=== PATIENT | male | born 1945 | race Native Hawaiian/Other Pacific Islander ===

== ENCOUNTER 2017-01-31 15:57 | Outpatient (CLI) | payer OTHER | END 2017-01-31 19:34 | disposition home or self-care (01) | LOC: LAB 15:57 | DX: R19.7 Diarrhea, unspecified (principal) | CPT/HCPCS: 82272; 87015; 87045; 87205; 87206; 87328; 87329; 87338; 87493; 87798; 87899 ==

== ENCOUNTER 2019-10-15 10:45 | Outpatient (CLI) | payer OTHER | END 2019-10-15 19:37 | disposition home or self-care (01) | LOC: RAD 10:45 | DX: E78.00 Pure hypercholesterolemia, unspecified (principal) ==

== ENCOUNTER 2020-01-22 15:25 | Outpatient (CLI) | payer OTHER | END 2020-01-22 19:20 | disposition home or self-care (01) | LOC: RAD 15:25 | DX: M70.61 Trochanteric bursitis, right hip (principal) ==

== ENCOUNTER 2020-03-09 10:31 | Outpatient (CLI) | payer OTHER | END 2020-03-09 20:10 | disposition home or self-care (01) | LOC: LABW 10:31 | DX: R50.9 Fever, unspecified (principal); U07.1 COVID-19 | CPT/HCPCS: 87635; G2023; U0002 ==

== ENCOUNTER → 2021-11-01 | Outpatient (CLI) | payer OTHER | LOC: MAMMO 14:11 | PROVIDERS: ATTEND Internal Medicine | DX: N63.11 Unspecified lump in the right breast, upper outer quadrant (principal) ==

== ENCOUNTER 2022-11-12 12:04 | Emergency (ER) | payer OTHER ==
[~2022-11-12] VITALS: Ht 182.9 cm; Wt 104.3 kg
[2022-11-12 12:10] VITALS: TEMP 98.9
[2022-11-12 13:35] VITALS: BP 116/69
== END 2022-11-12 13:35 | disposition home or self-care (01) ==
LOC: ED 12:04
DX: B34.9 Viral infection, unspecified (principal); Z20.822 Contact with and (suspected) exposure to COVID-19
CPT/HCPCS: 87502; 87635; 99283; U0003

== ENCOUNTER 2022-12-23 04:11 | Emergency (ER) | payer OTHER ==
[~2022-12-23] VITALS: Ht 182.9 cm; Wt 104.3 kg
[2022-12-23 05:30] VITALS: BP 129/88; TEMP 98.8
== END 2022-12-23 05:33 | disposition home or self-care (01) ==
LOC: ED 04:11
DX: J40 Bronchitis, not specified as acute or chronic (principal); Z20.822 Contact with and (suspected) exposure to COVID-19
CPT/HCPCS: 87635; 99283; U0003

== ENCOUNTER 2023-01-05 15:04 | Outpatient (CLI) | payer OTHER | END 2023-01-05 21:27 | disposition home or self-care (01) | LOC: CT 15:04 | PROVIDERS: ATTEND Internal Medicine | DX: R05.3 Chronic cough (principal) | CPT/HCPCS: 36415; 82565; 84520; Q9963 ==

== ENCOUNTER 2023-01-23 13:11 | Outpatient (CLI) | payer OTHER | END 2023-01-23 20:51 | disposition home or self-care (01) | LOC: RESP 13:11 | PROVIDERS: ATTEND Internal Medicine | DX: J40 Bronchitis, not specified as acute or chronic (principal) ==

== ENCOUNTER 2023-03-07 10:34 | Outpatient (CLI) | payer OTHER | END 2023-03-07 20:57 | disposition home or self-care (01) | LOC: RAD 10:34 | PROVIDERS: ATTEND Internal Medicine Sleep Medicine | DX: R06.09 Other forms of dyspnea (principal) ==

== ENCOUNTER 2023-04-28 08:04 | Outpatient (CLI) | payer OTHER ==
[2023-04-28 08:38] LABS: PLATELET COUNT 286 K/uL (142-355)
[2023-04-28 08:52] LABS: POTASSIUM 3.2 mmol/L (3.6-5.2)
== END 2023-04-28 19:14 | disposition home or self-care (01) ==
LOC: LABW 08:04
PROVIDERS: ATTEND Internal Medicine
DX: I10 Essential (primary) hypertension (principal)
CPT/HCPCS: 36415; 80053; 80061; 81002; 84439; 84443; 85027

== ENCOUNTER 2023-05-16 13:11 | Outpatient (CLI) | payer OTHER ==
[2023-05-16 13:58] LABS: POTASSIUM 3.5 mmol/L (3.6-5.2)
== END 2023-05-16 20:36 | disposition home or self-care (01) ==
LOC: LAB 13:11
PROVIDERS: ATTEND Internal Medicine
DX: E87.6 Hypokalemia (principal)
CPT/HCPCS: 80048; 83735

== ENCOUNTER 2023-06-21 13:11 | Outpatient (CLI) | payer OTHER | END 2023-06-21 19:09 | disposition home or self-care (01) | LOC: RESP 13:11 | PROVIDERS: ATTEND Specialist | DX: I95.1 Orthostatic hypotension (principal); I49.8 Other specified cardiac arrhythmias; I10 Essential (primary) hypertension ==

== ENCOUNTER 2023-09-05 10:52 | Outpatient (CLI) | payer OTHER | END 2023-09-05 19:03 | disposition home or self-care (01) | LOC: RESP 10:52 | PROVIDERS: ATTEND Nurse Practitioner | DX: I95.1 Orthostatic hypotension (principal); I49.8 Other specified cardiac arrhythmias ==